=== PATIENT | female | born 1945 | race Caucasian/White ===

== ENCOUNTER 2018-03-27 12:25 | Emergency (ER) | payer MEDICARE, OTHER ==
--- NOTE | 2018-03-27 13:22 | ED Physician Documentation ---
PD HPI TRUNK INJURY - Stated complaint Stated Complaint: GLF/RIB PX - Chief complaint Chief Complaint: General - History obtained from History obtained from: Patient - History of Present Illness Location: Right chest Type of injury: Fall Timing - onset: Today Timing - duration: Minutes Timing - details: Abrupt onset, Still present Quality: Pain, Sharp Improved by: Rest, Immobilization Worsened by: Moving, Palpating Associated symtptoms: No: Weakness, Numbness, Syncope Contributing factors: No: Anticoagulated Where injury occured: Home Similar symptoms before: Has not had sx before Recently seen: Not recently seen - Additional information Additional information: 72-year-old female was working out in the garden today when she tripped on a branch and fell onto a gravel pathway. She fell directly onto the right side of her chest and she has specific point tenderness to the right chest. Review of Systems Constitutional: denies: Fever Eyes: denies: Decreased vision Ears: denies: Ear pain Nose: denies: Congestion Throat: denies: Sore throat Cardiac: reports: Chest pain / pressure. denies: Palpitations Respiratory: denies: Dyspnea, Cough GI: denies: Abdominal Pain, Nausea, Vomiting : denies: Dysuria PD PAST MEDICAL HISTORY - Past Medical History Past Medical History: Yes Cardiovascular: Hypertension, High cholesterol Neuro: Seizure disorder - Present Medications Home Medications: Ambulatory Orders Medication Instructions Recorded Confirmed HYDROcod/ACETAM 5/325 [[place] 5/325] 1 - 2 ea PO Q6H PRN #15 tablet 03/27/18 Lamotrigine [Lamictal (Blue)] 25 mg PO 03/27/18 Losartan [Cozaar] 50 mg PO DAILY 03/27/18 03/27/18 Lovastatin 03/27/18 - Allergies Allergies/Adverse Reactions: Allergies Allergy/AdvReac Type Severity Reaction Status Date / Time No Known Drug Allergies Allergy Verified 03/27/18 12:31 - Social History Does the pt smoke?: No Smoking Status: Never smoker PD ED PE NORMAL - Vitals Vital signs reviewed: Yes (normal and misrepresented on the resp) - General General: Alert and oriented X 3, No acute distress, Well developed/nourished - HEENT HEENT: Atraumatic, PERRL, EOMI - Neck Neck: Supple, no meningeal sign - Cardiac Cardiac: RRR, No murmur - Respiratory Respiratory: No respiratory distress, Clear bilaterally, Other (She is clutching the right side of the chest with her right arm. ) - Abdomen Abdomen: Soft, Non tender, Other (specifically no tenderness under the rib cage. ) - Back Back: No CVA TTP, No spinal TTP - Derm Derm: Normal color, Warm and dry, No rash - Extremities Extremities: No deformity, No edema - Neuro Neuro: Alert and oriented X 3, No motor deficit, No sensory deficit, Normal speech Eye Opening: Spontaneous Motor: Obeys Commands Verbal: Oriented GCS Score: 15 - Psych Psych: Normal mood, Normal affect Results - Vitals Vitals: Vital Signs - 24 hr 03/27/18 12:29 Temperature 36.7 C Heart Rate 72 Respiratory 1 L Rate Blood Pressure 127/72 O2 Saturation 100 Oxygen O2 Source Room air - Rads (name of study) ribs with PA chest Radiology: Prelim report reviewed (Impression: Negative chest and rib radiography.), Discussed with rads (The radiologist did not agree with my interpretation. ), EMP read indepedently (On my read there are nondisplaced fractures of the sixth and seventh rib.), See rad report PD MEDICAL DECISION MAKING - ED course Complexity details: reviewed results, re-evaluated patient, considered differential, d/w patient, d/w family ED course: 72-year-old female that fell onto fall onto the right side of her chest has cracked to ribs. We will provide some pain medication I discussed with her the natural history of rib fracture and their healing time and reasons to revisit the emergency department. I have discussed the importance of daily deep breathing. - Sepsis Event Vital Signs: Vital Signs - 24 hr 03/27/18 12:29 Temperature 36.7 C Heart Rate 72 Respiratory 1 L Rate Blood Pressure 127/72 O2 Saturation 100 Oxygen O2 Source Room air Departure - Departure Disposition: 01 Home, Self Care Clinical Impression: Rib fracture Qualifiers: Encounter type: initial encounter Rib fracture type: single rib Fracture type: closed Laterality: right Qualified Code(s): S22.31XA - Fracture of one rib, right side, initial encounter for closed fracture Condition: Stable Instructions: ED Contusion Vs Minor Fx Rib Follow-Up: Bozena Pickett PA [Primary Care Provider] - Prescriptions: HYDROcod/ACETAM 5/325 [[place] 5/325] 1 - 2 ea PO Q6H PRN #15 tablet PRN Reason: Pain
--- NOTE | 2018-03-27 13:27 | XRAY Report ---
EXAM: RIGHT RIB RADIOGRAPHY EXAM DATE: 03/27/2018 01:05 PM. CLINICAL HISTORY: Right rib injury. COMPARISON: None. TECHNIQUE: 1 view of the chest and 2 views of the ribs. FINDINGS: Bones: Normal. No fracture or bone lesion. Lungs: No focal opacities. No pneumothorax. No pleural effusions. Mediastinum: Heart and mediastinal contours are unremarkable. Other: There is a small hiatal hernia. IMPRESSION: Negative chest and rib radiography. [facility] Referring Provider Line: [phone] SITE ID: [id number]
[2018-03-27 13:54] VITALS: BP 115/79
== END 2018-03-27 13:52 | disposition home or self-care (01) ==
LOC: ED 12:25
DX: S22.31XA Fracture of one rib, right side, initial encounter for closed fracture (principal); W01.0XXA Fall on same level from slipping, tripping and stumbling without subsequent striking against object, initial encounter; Y93.H2 Activity, gardening and landscaping; Y92.007 Garden or yard of unspecified non-institutional (private) residence as the place of occurrence of the external cause; I10 Essential (primary) hypertension; E78.00 Pure hypercholesterolemia, unspecified
CPT/HCPCS: 99283

== ENCOUNTER 2018-09-03 13:25 | Emergency (ER) | payer MEDICARE, OTHER ==
[2018-09-03 13:41] VITALS: BP 145/67
--- NOTE | 2018-09-03 13:44 | ED Physician Documentation ---
PD HPI LOWER EXT INJURY - Stated complaint Stated Complaint: R ANKLE INJ - Chief complaint Chief Complaint: Ext Problem - History obtained from History obtained from: Patient - History of Present Illness PD HPI LOW EXT INJURY LOCATION: Right (She rolled her right ankle 6 days ago and has persistent swelling and pain that is not getting any better. She is able to walk and bear weight. She declines pain medication on initial evaluation. No other injuries.) Review of Systems Constitutional: reports: Reviewed and negative Cardiac: reports: Reviewed and negative Respiratory: reports: Reviewed and negative PD PAST MEDICAL HISTORY - Past Medical History Cardiovascular: Hypertension, High cholesterol Neuro: Seizure disorder - Present Medications Home Medications: Ambulatory Orders Medication Instructions Recorded Confirmed Lamotrigine [Lamictal (Blue)] 25 mg PO 03/27/18 Losartan [Cozaar] 50 mg PO DAILY 03/27/18 03/27/18 RX: HYDROcod/ACETAM 5/325 [[place] 1 - 2 ea PO Q6H PRN #15 tablet 03/27/18 5/325] RX: Lovastatin 1 tab PO DAILY 03/27/18 Cholecalciferol (Vitamin D3) 1 tab PO DAILY 09/03/18 09/03/18 [Vitamin D3] RX: Aspirin [Aspirin EC] 1 tab PO DAILY 09/03/18 09/03/18 - Allergies Allergies/Adverse Reactions: Allergies Allergy/AdvReac Type Severity Reaction Status Date / Time No Known Drug Allergies Allergy Verified 09/03/18 13:50 - Social History Does the pt smoke?: No Smoking Status: Never smoker PD ED PE NORMAL - Vitals Vital signs reviewed: Yes - General General: Alert and oriented X 3, No acute distress - Extremities Extremities: Other (Tender to both malleoli of the right ankle, lateral more than medial. No proximal fibular or foot tenderness.) - Neuro Neuro: Alert and oriented X 3, Normal speech Results - Vitals Vitals: Vital Signs - 24 hr 09/03/18 13:39 Temperature 37.0 C Heart Rate 67 Respiratory 16 Rate Blood Pressure 145/67 H O2 Saturation 99 Oxygen O2 Source Room air - Rads (name of study) R ankle 3v Radiology: EMP read contemporaneously (Minimally displaced tip fracture of the distal fibula) PD MEDICAL DECISION MAKING - ED course ED course: 73-year-old woman with a 6-day-old right ankle injury. X-rays demonstrate a little distal fibular chip fracture. She has been up and around on it for 6 days and I think she can continue to be ambulatory given the distal nature of this fracture. She is placed in a boot. Departure - Departure Disposition: 01 Home, Self Care Clinical Impression: Closed fracture of right distal fibula Condition: Good Record reviewed to determine appropriate education?: Yes Instructions: ED Fx Lower Ext, ED Boot Aircast Walker Follow-Up: [facility] [Provider Group] - Within 1 week Comments: As discussed, given that is just a little chip fracture I think you can continue to walk and bear weight on it. Keep the boot on when up and around though. Follow-up with the orthopedic surgeons office within the week, call tomorrow for an appointment. Tylenol as needed for pain. Your blood pressure was elevated today on check into the emergency department. This does not mean that you have hypertension, it is a common phenomenon to come to the emergency department and have elevated blood pressure. I recommend that you see your primary care physician within the week to have it rechecked when you are feeling better.
--- NOTE | 2018-09-03 14:37 | XRAY Report ---
Reason: ankle injury Procedure Date: 09/03/2018 Accession Number: [id number] / [id number] Procedure: XR - Ankle 3 View RT CPT Code: FULL RESULT: EXAM: RIGHT ANKLE RADIOGRAPHY EXAM DATE: 09/03/2018 01:52 PM. CLINICAL HISTORY: Twisting injury 4 days ago. Pain and swelling. COMPARISON: None. TECHNIQUE: 3 views. FINDINGS: Bones: Transverse fracture through the distal tip of the fibula with 3 mm diastasis. No other fracture. Joints: No effusion. No subluxations. The ankle mortise is normally aligned. Soft Tissues: Diffuse soft tissue swelling, most pronounced laterally. IMPRESSION: Acute fracture of the distal tip of the fibula with minimal displacement. [facility]
== END 2018-09-03 14:18 | disposition home or self-care (01) ==
LOC: ED 13:25
DX: S82.831A Other fracture of upper and lower end of right fibula, initial encounter for closed fracture (principal); X50.1XXA Overexertion from prolonged static or awkward postures, initial encounter; Y93.02 Activity, running; I10 Essential (primary) hypertension; Z79.82 Long term (current) use of aspirin
CPT/HCPCS: 99283

== ENCOUNTER 2022-11-24 07:57 | Outpatient (CLI) | payer MEDICARE, OTHER ==
--- NOTE | 2022-11-24 08:31 | XRAY Report ---
PROCEDURE: Shoulder 3 View RT INDICATIONS: CONTUSION OF RIGHT UPPPER ARM TECHNIQUE: 3 views of the shoulder were acquired. COMPARISON: None. FINDINGS: Bones: Markedly comminuted fracture of the right humeral head and neck with pseudosubluxation. No crescencio picious bony lesions. Visualized ribs appear intact. Soft tissues: No suspicious soft tissue calcifications. IMPRESSION: Markedly comminuted fracture of the right humeral head and neck with pseudosubluxation s econdary to shoulder joint effusion. Reviewed by: Redd Benoit MD on 11/24/2022 8:29 AM PST Approved by: Redd Benoit MD on 11/24/2022 8:29 AM PST Station ID: [id number]
--- NOTE | 2022-11-24 08:31 | XRAY Report ---
PROCEDURE: Humerus RT INDICATIONS: CONTUSION OF RIGHT UPPPER ARM TECHNIQUE: 2 views of the humerus were acquired. COMPARISON: Right shoulder from the same date FINDINGS: Bones: Markedly comminuted fracture of the humeral head and neck. No distal fractures. No suspicious bony lesions. Soft tissues: No suspicious soft tissue calcifications. IMPRESSION: Markedly comminuted fracture of the humeral head and neck. Reviewed by: Redd Benoit MD on 11/24/2022 8:30 AM PST Approved by: Redd Benoit MD on 11/24/2022 8:30 AM PST Station ID: [id number]
== END 2022-11-24 07:58 | disposition home or self-care (01) ==
LOC: DI 07:57
PROVIDERS: ATTEND Physician Assistant Medical
DX: S42.291A Other displaced fracture of upper end of right humerus, initial encounter for closed fracture (principal); M25.411 Effusion, right shoulder

== ENCOUNTER 2022-11-24 18:21 | Outpatient (CLI) | payer MEDICARE, OTHER ==
--- NOTE | 2022-11-25 08:46 | CT Report ---
PROCEDURE: UPPER EXTREMITY WO - RT INDICATIONS: 4 PART FX OF RIGHT HUMERUS TECHNIQUE: Noncontrast 2 mm axial sections were acquired through the elbow joint, with coronal and sagittal refo rmats. For radiation dose reduction, the following was used: automated exposure control, adjustment of mA and/or kV according to patient size. COMPARISON: Plain films dated 11/24/2022 FINDINGS: Image quality: Excellent. Bones: There is a moderately displaced comminuted fracture of the humeral head and neck, with roughl y 23 mm of impaction anteriorly. Periarticular osteophyte formation at the acromioclavicular joint. M ultiple healed right anterior rib fractures. Soft tissues: Scarring within the right anterior lung base. IMPRESSION: 1. Proximal right humeral fracture. 2. Acromial clavicular joint osteoarthritis. Reviewed by: Prema Núñez MD on 11/25/2022 8:45 AM PST Approved by: Prema Núñez MD on 11/25/2022 8:45 AM PST Station ID: [id number]
== END 2022-11-24 18:22 | disposition home or self-care (01) ==
LOC: DI 18:21
PROVIDERS: ATTEND Physician Assistant
DX: S42.241A 4-part fracture of surgical neck of right humerus, initial encounter for closed fracture (principal); M19.011 Primary osteoarthritis, right shoulder; M25.411 Effusion, right shoulder

== ENCOUNTER 2023-05-13 09:13 | Outpatient (CLI) | payer MEDICARE, OTHER ==
--- NOTE | 2023-05-16 11:59 | Mammography Report ---
BILATERAL DIGITAL SCREENING MAMMOGRAM 3D/2D: 05/13/2023 CLINICAL: Routine screening. Comparison is made to exam dated: 09/16/2020 mammogram - [facility]. There are scattered areas of fibroglandular density in both breasts (category b / 25%-50% glandular t issue). No significant masses, calcifications, or other findings are seen in either breast. There has been no significant interval change. IMPRESSION: NEGATIVE There is no mammographic evidence of malignancy. A 1 year screening mammogram is recommended. Based on the Tyrer Cuzick model (a risk assessment model) the patients lifetime risk is 2.9% and her 10 year risk is 0.0%. According to the ACR, ACS, and NCCN guidelines, an annual breast MRI exam kapil g with mammogram is recommended if the patients lifetime risk is 20% or greater. This exam was interpreted at Station ID: [id number]. NOTE: For mammograms, a report in lay terms will be sent to the patient. Approximately 15% of breast malignancies will not be visualized mammographically. In the management of a palpable breast mass, a negative mammogram must not discourage biopsy of a clinically suspicious lesion. Electronically Signed By: Yosef wilkinson/lily:05/13/2023 12:33:14 letter sent: No_Letter ACR BI-RADS Category 1: Negative 3341F PARENCHYMAL PATTERN: (A) - The breast(s) demonstrate(s) scattered fibroglandular densities. BI-RADS CATEGORY: (1) - 1 Mammogram [id number] 1 year screening LATERALITY: (B)
== END 2023-05-13 09:14 | disposition home or self-care (01) ==
LOC: DI 09:13
PROVIDERS: ATTEND Physician Assistant
DX: Z12.31 Encounter for screening mammogram for malignant neoplasm of breast (principal)

== ENCOUNTER 2023-05-13 09:14 | Outpatient (CLI) | payer MEDICARE, OTHER ==
--- NOTE | 2023-05-13 10:38 | DEXA Report ---
PROCEDURE: Dexa Spine and/or Hip INDICATIONS: HIST FRAGILLTY FX TECHNIQUE: Dual energy x-ray absorptiometry (DXA) was performed on a [employer] System. Regions measur ed are the AP Spine, femoral neck, and if needed forearm. COMPARISON: None FINDINGS: Lumbar Spine: Bone Mineral Density 1.034 g/cm/cm,T score -1.2. Left Femoral Neck: Bone Mineral Density 0.666 g/cm/cm, T score -2.7. Left Hip: Bone Mineral Density 0.737 g/cm/cm,T score -2.2. (T score greater or equal to -1.0: NORMAL) (T score from -1.1 to -2.4: OSTEOPENIA) (T score less than or equal to -2.5 to: OSTEOPOROSIS) Impression: By WHO criteria, this patient has osteoporosis. Patients with diagnosis of osteoporosis or osteopenia should have regular bone mineral density assess ment. For those eligible for Medicare, routine testing is allowed once every 2 years. Testing frequ ency can be increased for patients who have rapidly progressing disease or for those who are receivin g medical therapy to restore bone mass. Reviewed by: Satya Tesfaye MD on 05/13/2023 10:37 AM PDT Approved by: Satya Tesfaye MD on 05/13/2023 10:37 AM PDT Station ID: [id number]
== END 2023-05-13 09:15 | disposition home or self-care (01) ==
LOC: DI 09:14
PROVIDERS: ATTEND Physician Assistant
DX: Z87.310 Personal history of (healed) osteoporosis fracture (principal); M81.0 Age-related osteoporosis without current pathological fracture

== ENCOUNTER 2023-09-27 19:28 | Emergency (ER) | payer MEDICARE, OTHER ==
[2023-09-27 19:40] VITALS: BP 152/72; O2SAT 98
--- NOTE | 2023-09-27 19:52 | ED Physician Documentation ---
PD HPI OPHTHO - Stated complaint Stated Complaint: LT EYE PX - Chief complaint Chief Complaint: Heent - History obtained from History obtained from: Patient, Family - History of Present Illness Location: Left Associated symptoms: Redness, Tearing, FB sensation Contributing factors: No: Exposed to conjunctivitis, Recent URI - Additional information Additional information: Patient is a 78-year-old female complains of left eye pain. She states that she started to have a irritated sensation to the left eye and then removed her contact. She states that the pain has gradually worsened. Worse with opening her eyes. Better with closing her eyes. No drainage. No fevers. No chills. She does not sleep in her contacts. No trauma. 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 - Present Medications Home Medications: Ambulatory Orders Medication Instructions Recorded Confirmed HYDROcod/ACETAM 5/325 [[place] 5/325] 1 - 2 ea PO Q6H PRN #15 tablet 03/27/18 Lamotrigine [Lamictal (Blue)] 25 mg PO 03/27/18 Losartan [Cozaar] 50 mg PO DAILY 03/27/18 03/27/18 Lovastatin 1 tab PO DAILY 03/27/18 Aspirin [Aspirin EC] 1 tab PO DAILY 09/03/18 09/03/18 Cholecalciferol (Vitamin D3) 1 tab PO DAILY 09/03/18 09/03/18 [Vitamin D3] Ofloxacin 0.3% Ophth Drops 2 drops LEFTEYE Q4H 7 Days #5 ml 09/27/23 [Ocuflox 0.3% Ophth Drops] - Allergies Allergies/Adverse Reactions: Allergies Allergy/AdvReac Type Severity Reaction Status Date / Time No Known Drug Allergies Allergy Verified 09/27/23 19:32 - Social History Does the pt smoke?: No Smoking Status: Never smoker Does the pt drink ETOH?: Yes Does the pt have substance abuse?: No - Immunizations Immunizations are current?: Yes PD ED PE NORMAL - Vitals Vital signs reviewed: Yes - General General: Alert and oriented X 3, No acute distress - HEENT HEENT: Moist mucous membranes, Other (R eye normal. L eye Mild conjunctival injection. No foreign bodies under the eyelids. Fluorescein uptake in the mid cornea consistent with abrasion.) - Derm Derm: Warm and dry - Neuro Neuro: Alert and oriented X 3 - Psych Psych: Normal mood, Normal affect Results - Vitals Vitals: Vital Signs - 24 hr 09/27/23 09/27/23 19:30 19:59 Temperature 36.8 C Heart Rate 72 75 Respiratory 16 16 Rate Blood Pressure 152/72 H O2 Saturation 98 98 Oxygen O2 Source Room air PD Medical Decision Making - ED course Complexity details: considered differential, d/w patient, d/w family ED course: Patient with a left eye corneal abrasion. No foreign body. Will place on ofloxacin ophthalmic. Will have her follow-up with ophthalmology for further care. No contacts until she is done with the antibiotics. Patient counseled regarding signs and symptoms for which I believe and urgent re-evaluation would be necessary. Patient with good understanding of and agreement to plan and is comfortable going home at this time This document was made in part using voice recognition software. While efforts are made to proofread this document, sound alike and grammatical errors may occur. Departure - Departure Disposition: 01 Home, Self Care Clinical Impression: Corneal abrasion Qualifiers: Encounter type: initial encounter Laterality: left Qualified Code(s): S05.02XA - Injury of conjunctiva and corneal abrasion without foreign body, left eye, initial encounter Condition: Good Instructions: ED Eye Injury Corneal Abrasion Follow-Up: your,doctor in 1 week [Other] Prescriptions: Ofloxacin 0.3% Ophth Drops [Ocuflox 0.3% Ophth Drops] 2 drops LEFTEYE Q4H 7 Days #5 ml Comments: Your prescription was sent to [facility] in [place]. Please use the antibiotic drops as prescribed. Do not wear your contacts until you are done with the antibiotic drops. You can use artificial tears at home, cool compresses can help with discomfort as well. You have a scratch on your cornea that should heal on its own. Forms: PCP List Discharge Date/Time: 09/27/23 19:59
== END 2023-09-27 19:59 | disposition home or self-care (01) ==
LOC: ED 19:28
DX: S05.02XA Injury of conjunctiva and corneal abrasion without foreign body, left eye, initial encounter (principal); X58.XXXA Exposure to other specified factors, initial encounter; I10 Essential (primary) hypertension
CPT/HCPCS: 99282; 99283

== ENCOUNTER 2024-03-20 12:38 | Outpatient (CLI) | payer MEDICARE, BC | END 2024-03-20 23:59 | disposition critical access hospital (66) | LOC: EMS 12:38 | DX: R42 Dizziness and giddiness (principal) | CPT/HCPCS: A0425; A0429 ==

== ENCOUNTER 2024-03-20 13:03 | Emergency (ER) | payer MEDICARE, BC ==
[2024-03-20 13:41] LABS: BASOPHILS % (AUTO) 0.3 %; EOSINOPHILS # (AUTO) 0.2 10^3/uL (0.0-0.7); EOSINOPHILS % (AUTO) 2.1 %; HCT - HEMATOCRIT 32.9 % (37.0-47.0); HGB - HEMOGLOBIN 10.1 g/dL (12.0-16.0); LYMPHOCYTES # (AUTO) 1.4 10^3/uL (1.5-3.5); LYMPHOCYTES % (AUTO) 18.9 %; MEAN CORPUSCULAR HEMOGLOBIN 29.8 pg (27.0-31.0); MEAN CORPUSCULAR HGB CONC 30.7 g/dL (32.0-36.0); MEAN CORPUSCULAR VOLUME 97.1 fL (81.0-99.0); MEAN PLATELET VOLUME 9.9 fL (7.9-10.8); MONOCYTES # (AUTO) 0.6 10^3/uL (0.0-1.0); MONOCYTES % (AUTO) 8.5 %; NEUTROPHILS # (AUTO) 5.1 10^3/uL (1.5-6.6); NEUTROPHILS % (AUTO) 69.9 %; PLT - PLATELET COUNT 324 10^3/uL (130-450); RED BLOOD COUNT 3.39 10^6/uL (4.20-5.40); WHITE BLOOD COUNT 7.3 x10^3/uL (4.8-10.8)
--- NOTE | 2024-03-20 13:57 | ED Physician Documentation ---
History of Present Illness - Stated complaint Stated Complaint: VERTIGO - Chief complaint Chief Complaint: Neuro - Additonal information Additional information: 78-year-old female with history of hypertension, hypercholesterolemia, seizure disorder presents emergency department for dizziness. Patient is here with her daughter her daughter says that she is normally quite clumsy but over the last week patient has been having to hold onto things more than normal and has been feeling very dizzy. 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 - Present Medications Home Medications: Ambulatory Orders Medication Instructions Recorded Confirmed Lamotrigine [Lamictal (Blue)] 250 mg PO BID 03/27/18 03/20/24 Losartan [Cozaar] 25 mg PO DAILY 03/27/18 03/20/24 Lovastatin 1 tab PO DAILY 03/27/18 03/20/24 Meclizine HCl 25 mg PO TID PRN #20 tab 03/20/24 Ondansetron Odt [Zofran Odt] 4 mg TL Q6H PRN #10 tablet 03/20/24 PARoxetine HCL [Paxil] 1 tab PO DAILY 03/20/24 03/20/24 - Allergies Allergies/Adverse Reactions: Allergies Allergy/AdvReac Type Severity Reaction Status Date / Time No Known Drug Allergies Allergy Verified 03/20/24 13:17 - Social History Does the pt smoke?: No Smoking Status: Never smoker Does the pt drink ETOH?: Yes Does the pt have substance abuse?: No - Immunizations Immunizations are current?: Yes PD ED PE NORMAL - Vitals Vital signs reviewed: Yes - General General: Alert and oriented X 3, No acute distress, Well developed/nourished - HEENT HEENT: Atraumatic, PERRL, EOMI, Ears normal, Moist mucous membranes - Cardiac Cardiac: RRR - Respiratory Respiratory: No respiratory distress, Clear bilaterally - Abdomen Abdomen: Normal bowel sounds, Soft, Non tender - Female Female : Deferred - Back Back: No CVA TTP - Derm Derm: Normal color, Warm and dry, No rash - Extremities Extremities: No edema, No calf tenderness / cord - Neuro Neuro: Alert and oriented X 3, assurance analyst 2-12 intact, No motor deficit, No sensory deficit, Normal speech Eye Opening: Spontaneous Motor: Obeys Commands Verbal: Oriented GCS Score: 15 - Psych Psych: Normal mood, Normal affect Results - Vitals Vitals: Vital Signs - 24 hr 03/20/24 03/20/24 03/20/24 13:13 13:36 13:43 Temperature 36.4 C L Heart Rate 76 69 Heart Rate [ 74 Sitting] Heart Rate [ 78 Standing] Heart Rate [ 76 Supine] Respiratory 17 16 Rate Blood Pressure 155/77 H 155/77 H Blood Pressure 163/79 H [Sitting] Blood Pressure 154/85 H [Standing] Blood Pressure 155/77 H [Supine] O2 Saturation 97 96 03/20/24 03/20/24 17:19 19:10 Temperature Heart Rate 72 82 Heart Rate [ Sitting] Heart Rate [ Standing] Heart Rate [ Supine] Respiratory 16 18 Rate Blood Pressure 139/71 H 143/78 H Blood Pressure [Sitting] Blood Pressure [Standing] Blood Pressure [Supine] O2 Saturation 96 97 Oxygen O2 Source Room air - Labs Labs: Laboratory Tests 03/20/24 03/20/24 13:35 13:35 WBC 7.3 RBC 3.39 L Hgb 10.1 L Hct 32.9 L MCV 97.1 MCH 29.8 MCHC 30.7 L RDW 14.0 Plt Count 324 MPV 9.9 Neut # (Auto) 5.1 Lymph # (Auto) 1.4 L [place] # (Auto) 0.6 Eos # (Auto) 0.2 Baso # (Auto) 0.0 Absolute Nucleated RBC 0.00 Nucleated RBC % 0.0 Sodium 138 Potassium 4.4 Chloride 105 Carbon Dioxide 26 Anion Gap 7.0 BUN 21 H Creatinine 1.2 Estimated GFR (MDRD) 44 L Glucose 91 Calcium 9.7 Total Bilirubin 0.3 AST 12 ALT 8 L Alkaline Phosphatase 96 Troponin I High Sens 5.3 Total Protein 6.8 Albumin 4.0 Globulin 2.8 Albumin/Globulin Ratio 1.4 Lipase 16 - Rads (name of study) . Brain MRI without Relevant Findings:: Final report received, EMP independent interpretation of test, Other (No acute intracranial abnormalities or findings) PD Medical Decision Making - ED course ED course: 78-year-old female presents emergency department for what sounds like vertigo. Differentials also include possible brain lesion, CVA, or neoplasm. Labs are complete for further evaluation of patient's dizziness she does have very mild anemia hemoglobin 10.1 as well as a slightly suppressed GFR of 44 and a slightly elevated BUN of 21. Other than that no other electrolyte abnormalities or findings. Because patient said that she has been struggling with this for some time and I was unable to elicit any of her vertigo here in the ER did do a brain MRI without given that her symptoms have been going on now for over a week and a half I did not think a CT scan was necessarily warranted. Patient was quite anxious and asked for anxiolytic she received 2 separate doses of 1 mg IV Ativan to help with her anxiety as patient is very claustrophobic. She is able to complete the brain MRI without any complications and it did not reveal any acute intracranial abnormalities or findings. Patient was started on meclizine and Zofran here in the ER she was given a referral to [place] Salvatore [place]as[place] of [place] balance and her vertigo symptoms. She is told to follow-up with her primary care provider. ER return precautions given. Prescription of meclizine and Zofran sent to her preferred pharmacy, all questions answered patient is leaving with her daughter and safe for discharge at this time. Departure - Departure Disposition: 01 Home, Self Care Clinical Impression: Vertigo Instructions: ED Vertigo Unspecified Prescriptions: Meclizine HCl 25 mg PO TID PRN #20 tab PRN Reason: Dizziness Ondansetron Odt [Zofran Odt] 4 mg TL Q6H PRN #10 tablet PRN Reason: Nausea / Vomiting Comments: Thank you for trusting us with your care. We have completed labs and very thorough evaluation including a brain MRI for further investigation as to what is causing your dizziness and we are not seeing any emergent findings at this point in time. I strongly encourage you to follow-up with your primary care provider and let them know about today's ER visit and I would also strongly encourage you to follow-up with Salvatore olmos and balance physical therapist. Their phone number is [phone]. I have sent a prescription of meclizine you can take 25 mg up to 3 times a day as needed for any vertigo symptoms as well as ondansetron also known as Zofran to help with any nausea you can take this every 6 hours make sure that you dissolve it under your tongue and do not swallow it. Please come back to the emergency department for any further evaluation if your symptoms get worse or any other concerning emergent symptoms. Wishing a speedy recovery. Forms: PCP List Discharge Date/Time: 03/20/24 19:16
[2024-03-20 13:58] LABS: ALBUMIN/GLOBULIN RATIO 1.4 (1.0-2.2); BILIRUBIN,TOTAL 0.3 mg/dL (0.2-1.0); CALCIUM 9.7 mg/dL (8.5-10.3); CREATININE 1.2 mg/dL (0.6-1.3); POTASSIUM 4.4 mmol/L (3.5-4.5); TOTAL PROTEIN 6.8 g/dL (6.4-8.9)
[2024-03-20 14:02] LABS: TROPONIN I HIGH SENSITIVITY 5.3 ng/L (2.3-14.8)
[2024-03-20] MEDS: LORazepam 2 MG/ML VIAL IVP STA ×3 (14:50→17:21)
[2024-03-20] MEDS: LORazepam 1 MG TABLET PO STA (14:56)
--- NOTE | 2024-03-20 18:23 | MRI Report ---
PROCEDURE: Brain WO INDICATIONS: vertigo TECHNIQUE: Noncontrast axial T1 spin echo, axial T2 fast spin echo, sagittal and axial FLAIR, coronal T2 fast sp in echo, axial gradient echo, axial diffusion and ADC through the brain. COMPARISON: None. FINDINGS: Image quality: Motion artifact is noted. CSF Spaces: Basal cisterns are patent. No extra-axial fluid collections. Ventricles are normal in size and shape. Brain: No intracranial masses or hemorrhage. Salazar/white matter interface is normal. Brainstem appe ars normal. Diffusion-weighted images demonstrate no acute ischemic insult. No chronic ischemic ins ults. Normal intravascular flow voids are present. In this patient with this given history, scrutiny is given to the cerebellopontine angle cisterns and to the internal auditory canals. To the limits of this standard protocol study, no masses can be see n within these regions. Skull and face: Focal scalp thickening can be seen involving the left frontal region, as on series 7 image 17. Calvarium has normal marrow signal. Orbits appear normal. Sinuses: Sinuses and mastoids are clear. IMPRESSION: The limits of this study, no cause of vertigo can be seen. Reviewed by: Pieter Hernandes MD on 03/20/2024 5:21 PM YARELI Approved by: Pieter Hernandes MD on 03/20/2024 5:21 PM YARELI Station ID: [id number]
[2024-03-20] MEDS: MECLIZINE 12.5 MG TABLET PO STA (18:59)
[2024-03-20] MEDS: ONDANSETRON 4 MG/2 ML VIAL IVP STA (18:59)
[2024-03-20 19:19] VITALS: BP 143/78; O2SAT 97
== END 2024-03-20 19:16 | disposition home or self-care (01) ==
LOC: EDUNIT# → ED 13:03
DX: R42 Dizziness and giddiness (principal); D64.9 Anemia, unspecified; R79.89 Other specified abnormal findings of blood chemistry; F41.9 Anxiety disorder, unspecified; F40.240 Claustrophobia; I10 Essential (primary) hypertension
CPT/HCPCS: 36415; 70551; 80053; 83690; 84484; 85025; 93005; 96374; 96375; 96376; 99284; A9270; J2060

== ENCOUNTER 2024-03-21 18:33 | Emergency (ER) | payer MEDICARE, BC ==
[2024-03-21 20:06] LABS: BASOPHILS % (AUTO) 0.3 %; EOSINOPHILS # (AUTO) 0.1 10^3/uL (0.0-0.7); EOSINOPHILS % (AUTO) 1.8 %; HCT - HEMATOCRIT 35.8 % (37.0-47.0); HGB - HEMOGLOBIN 10.8 g/dL (12.0-16.0); LYMPHOCYTES # (AUTO) 1.3 10^3/uL (1.5-3.5); LYMPHOCYTES % (AUTO) 19.8 %; MEAN CORPUSCULAR HEMOGLOBIN 29.8 pg (27.0-31.0); MEAN CORPUSCULAR HGB CONC 30.2 g/dL (32.0-36.0); MEAN CORPUSCULAR VOLUME 98.9 fL (81.0-99.0); MEAN PLATELET VOLUME 10.2 fL (7.9-10.8); MONOCYTES # (AUTO) 0.7 10^3/uL (0.0-1.0); MONOCYTES % (AUTO) 10.3 %; NEUTROPHILS # (AUTO) 4.4 10^3/uL (1.5-6.6); NEUTROPHILS % (AUTO) 67.5 %; PLT - PLATELET COUNT 342 10^3/uL (130-450); RED BLOOD COUNT 3.62 10^6/uL (4.20-5.40); RED CELL DISTRIBUTION WIDTH 13.8 % (12.0-15.0); WHITE BLOOD COUNT 6.5 x10^3/uL (4.8-10.8)
[2024-03-21 20:16] LABS: BILIRUBIN,URINE NEGATIVE (NEGATIVE); GLUCOSE, URINE (UA) NEGATIVE (NEGATIVE); KETONES,URINE (UA) NEGATIVE (NEGATIVE); LEUKOCYTE ESTERASE, URINE SMALL (NEGATIVE); NITRITE,URINE NEGATIVE (NEGATIVE); OCCULT BLOOD,URINE NEGATIVE (NEGATIVE); PROTEIN,URINE NEGATIVE (NEGATIVE); UROBILINOGEN,URINE 0.2 (NORMAL) E.U./dL (NORMAL)
[2024-03-21 20:17] LABS: CLARITY,URINE CLEAR (CLEAR)
[2024-03-21 20:24] LABS: BACTERIA,URINE Rare /HPF (None Seen); RBC,URINE None Seen /HPF (0-5); SQUAMOUS EPITHELIAL CELL,UR RARE Squamous (<= Few)
[2024-03-21 20:33] LABS: ALBUMIN 4.2 g/dL (3.2-5.5); ALBUMIN/GLOBULIN RATIO 1.7 (1.0-2.2); BILIRUBIN,TOTAL 0.3 mg/dL (0.2-1.0); CREATININE 1.4 mg/dL (0.6-1.3); POTASSIUM 4.5 mmol/L (3.5-4.5); TOTAL PROTEIN 6.7 g/dL (6.4-8.9)
[2024-03-21 21:07] VITALS: O2SAT 99
[2024-03-21] MEDS ORDERED: cefTRIAXone 1 GM VIAL ONE (21:16)
--- NOTE | 2024-03-21 21:18 | ED Physician Documentation ---
History of Present Illness - Stated complaint Stated Complaint: DIZZY/SHAKY - Chief complaint Chief Complaint: Neuro - History obtained from History obtained from: Patient - Additonal information Additional information: 78yF presents to the ED for second ed visit in 2 days after c/o dizziness and "fuzziness" with negative workup yesterday. Today she additionally reports dysuria and increased frequency. Denies fever, back pain, abdominal pain. 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 - Present Medications Home Medications: Ambulatory Orders Medication Instructions Recorded Confirmed Lamotrigine [Lamictal (Blue)] 250 mg PO BID 03/27/18 03/20/24 Losartan [Cozaar] 25 mg PO DAILY 03/27/18 03/20/24 Lovastatin 1 tab PO DAILY 03/27/18 03/20/24 Meclizine HCl 25 mg PO TID PRN #20 tab 03/20/24 Ondansetron Odt [Zofran Odt] 4 mg TL Q6H PRN #10 tablet 03/20/24 PARoxetine HCL [Paxil] 1 tab PO DAILY 03/20/24 03/20/24 Cefpodoxime Proxetil [Vantin] 100 mg PO Q12H #14 tablet 03/21/24 Saccharomyces Boulardii [Florastor] 250 mg PO BIDWM #14 tab 03/21/24 - Allergies Allergies/Adverse Reactions: Allergies Allergy/AdvReac Type Severity Reaction Status Date / Time No Known Drug Allergies Allergy Verified 03/21/24 18:50 - Social History Does the pt smoke?: No Smoking Status: Never smoker Does the pt drink ETOH?: Yes Does the pt have substance abuse?: No - Immunizations Immunizations are current?: Yes PD ED PE NORMAL - Vitals Vital signs reviewed: Yes - General General: Alert and oriented X 3, No acute distress, Well developed/nourished - HEENT HEENT: Atraumatic, PERRL, EOMI - Neck Neck: Supple, no meningeal sign - Cardiac Cardiac: RRR - Respiratory Respiratory: No respiratory distress, Clear bilaterally - Abdomen Abdomen: Non tender, Non distended - Derm Derm: Normal color, Warm and dry - Neuro Neuro: Alert and oriented X 3 Eye Opening: Spontaneous Motor: Obeys Commands Verbal: Oriented GCS Score: 15 Results - Vitals Vitals: Vital Signs - 24 hr 03/21/24 03/21/24 03/21/24 18:43 20:55 21:12 Temperature 36.5 C Heart Rate 77 69 Heart Rate [ 82 Sitting] Heart Rate [ 72 Standing] Heart Rate [ 72 Supine] Respiratory 18 18 Rate Blood Pressure 110/62 125/86 H Blood Pressure 139/70 H [Sitting] Blood Pressure 127/77 [Standing] Blood Pressure 134/67 H [Supine] O2 Saturation 98 99 Oxygen O2 Source Room air - Labs Labs: Laboratory Tests 03/21/24 03/21/24 03/21/24 20:01 20:01 20:11 WBC 6.5 RBC 3.62 L Hgb 10.8 L Hct 35.8 L MCV 98.9 MCH 29.8 MCHC 30.2 L RDW 13.8 Plt Count 342 MPV 10.2 Neut # (Auto) 4.4 Lymph # (Auto) 1.3 L [place] # (Auto) 0.7 Eos # (Auto) 0.1 Baso # (Auto) 0.0 Absolute Nucleated RBC 0.00 Nucleated RBC % 0.0 Sodium 139 Potassium 4.5 Chloride 104 Carbon Dioxide 28 Anion Gap 7.0 BUN 22 H Creatinine 1.4 H Estimated GFR (MDRD) 36 L Glucose 101 Calcium 10.0 Total Bilirubin 0.3 AST 11 ALT 8 L Alkaline Phosphatase 89 Total Protein 6.7 Albumin 4.2 Globulin 2.5 Albumin/Globulin Ratio 1.7 Lipase 18 Urine Color YELLOW Urine Clarity CLEAR Urine pH 6.0 Ur Specific [place] 1.025 Urine Protein NEGATIVE Urine Glucose (UA) NEGATIVE Urine Ketones NEGATIVE Urine Occult Blood NEGATIVE Urine Nitrite NEGATIVE Urine Bilirubin NEGATIVE Urine Urobilinogen 0.2 (NORMAL) Ur Leukocyte Esterase SMALL H Urine RBC None Seen Urine WBC 11-25 H Ur Squamous Epith Cells RARE Squamous Urine Bacteria Rare Urine Culture Comments INDICATED PD Medical Decision Making - ED course ED course: 78-year-old woman presents with urinary tract infection and urinalysis with mild ANIBAL with creatinine 1.4, up from 1.2 yesterday. She has stable chronic anemia that she is already aware of. Advised to follow-up with her primary care provider in regards to this. Declines rectal exam at this time. Last hemoglobin in 2012 was 12.6. Return precautions discussed and antibiotics sent to pharmacy. First dose provided here. Departure - Departure Disposition: 01 Home, Self Care Clinical Impression: UTI (urinary tract infection) Condition: Stable Instructions: ED UTI Cystitis Female Prescriptions: Saccharomyces Boulardii [Florastor] 250 mg PO BIDWM #14 tab Cefpodoxime Proxetil [Vantin] 100 mg PO Q12H #14 tablet Comments: You were seen in the emergency department for urinary tract infection. Antibiotics were sent to [facility] in [place]. Please follow-up with your primary care provider about your anemia and to have your kidney function tests repeated in one to two weeks. Return to the emergency department if you have any new or worsening symptoms or other concerns.
[2024-03-21] MEDS: cefTRIAXone 1 GM in SODIUM CHLORIDE 0.9% MINIBAG 100 ML IV STA (21:54)
[2024-03-21] MEDS: CEFPODOXIME PROXETIL 100 MG TABLET PO STA ×2 (22:05→22:12)
[2024-03-21] MEDS: cefTRIAXone 2 GM VIAL IVP STA (22:11)
[2024-03-21 22:24] VITALS: BP 136/69
== END 2024-03-21 22:13 | disposition home or self-care (01) ==
LOC: ED 18:33
DX: N30.00 Acute cystitis without hematuria (principal); N17.9 Acute kidney failure, unspecified; D64.9 Anemia, unspecified; I10 Essential (primary) hypertension; G40.909 Epilepsy, unspecified, not intractable, without status epilepticus
CPT/HCPCS: 36415; 80053; 81001; 83690; 85025; 87086; 99283; A9270

== ENCOUNTER 2024-03-23 00:46 | Outpatient (CLI) | payer MEDICARE, BC ==
--- NOTE | 2024-03-25 11:49 | ED Physician Documentation ---
ED Addendum - Addendum Addendum: 03/25/24 11:49 Urine culture reviewed, probably would change her over to Cipro. I left a voicemail for her to call back at this time.
== END 2024-03-23 23:59 ==
LOC: EMS 00:46
DX: Z03.89 Encounter for observation for other suspected diseases and conditions ruled out (principal)

== ENCOUNTER 2024-03-26 12:39 | Outpatient (CLI) | payer MEDICARE, BC | END 2024-03-26 23:59 | disposition critical access hospital (66) | LOC: EMS 12:39 | DX: R41.0 Disorientation, unspecified (principal); R53.1 Weakness; R29.6 Repeated falls | CPT/HCPCS: A0425; A0429 ==

== ENCOUNTER 2024-03-26 13:02 | Emergency (ER) | payer MEDICARE, BC ==
[2024-03-26] MEDS: SODIUM CHLORIDE 0.9% 1,000 ML IV STA (14:17)
[2024-03-26 14:28] LABS: BASOPHILS % (AUTO) 0.3 %; EOSINOPHILS # (AUTO) 0.1 10^3/uL (0.0-0.7); EOSINOPHILS % (AUTO) 1.3 %; HCT - HEMATOCRIT 33.2 % (37.0-47.0); HGB - HEMOGLOBIN 10.1 g/dL (12.0-16.0); LYMPHOCYTES # (AUTO) 1.1 10^3/uL (1.5-3.5); MEAN CORPUSCULAR HEMOGLOBIN 29.7 pg (27.0-31.0); MEAN CORPUSCULAR HGB CONC 30.4 g/dL (32.0-36.0); MEAN CORPUSCULAR VOLUME 97.6 fL (81.0-99.0); MEAN PLATELET VOLUME 10.1 fL (7.9-10.8); MONOCYTES # (AUTO) 0.6 10^3/uL (0.0-1.0); MONOCYTES % (AUTO) 7.8 %; NEUTROPHILS # (AUTO) 5.3 10^3/uL (1.5-6.6); NEUTROPHILS % (AUTO) 75.2 %; PLT - PLATELET COUNT 298 10^3/uL (130-450); RED CELL DISTRIBUTION WIDTH 13.9 % (12.0-15.0); WHITE BLOOD COUNT 7.1 x10^3/uL (4.8-10.8)
[2024-03-26 14:42] LABS: ALBUMIN 4.1 g/dL (3.2-5.5); ALBUMIN/GLOBULIN RATIO 1.4 (1.0-2.2); BILIRUBIN,TOTAL 0.4 mg/dL (0.2-1.0); CREATININE 1.2 mg/dL (0.6-1.3); POTASSIUM 4.2 mmol/L (3.5-4.5); TOTAL PROTEIN 7.1 g/dL (6.4-8.9)
--- NOTE | 2024-03-26 17:14 | ED Physician Documentation ---
History of Present Illness - Stated complaint Stated Complaint: GEN WEAKNESS - Chief complaint Chief Complaint: General - History obtained from History obtained from: Patient, Family - Additonal information Additional information: The patient is brought to the emergency department by her daughter for chief complaint of being off balance and confused. The patient was diagnosed with a urinary tract infection about a week ago and at that time had been having some complaints of dizziness. The family also felt that she seemed a little bit confused. Patient normally lives on her own and takes care of herself but daughter lives nearby. She states she is never noted the patient to be as confused that she has been over the last week. She states that yesterday morning, the patient thought it had snowed that the patient states she was wearing her glasses and that is why she thought there was snow on the ground. Patient is also been getting up repeatedly despite the fact that she is not balancing well and keeps falling. Patient had very extensive workup last week including MRI and all was negative except for UTI. The patient was called yesterday to be notified that her prescription for antibiotics needed to be changed to Cipro, but daughter states that she does not think the patient got the message. The patient states she does not feel sick at all. She does not think she is confused though her daughter very much thinks she is. The patient does notice the feeling of spinning in her brain. She denies any injuries from the falls. Daughter states her main concern is she does not think they are doing a good enough job taking care of the patient at home. It has been her and her sister and [id number] and she is just worried she also is concerned that she does not know why the patient is having the symptoms. She states the patient has never had a Mini-Mental status exam or any other evaluation for the potential for dementia. She has never had need of a neurologist for anything. No other complaints at this time. 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 - Present Medications Home Medications: Ambulatory Orders Medication Instructions Recorded Confirmed Lamotrigine [Lamictal (Blue)] 250 mg PO BID 03/27/18 03/20/24 Losartan [Cozaar] 25 mg PO DAILY 03/27/18 03/20/24 Lovastatin 1 tab PO DAILY 03/27/18 03/20/24 Meclizine HCl 25 mg PO TID PRN #20 tab 03/20/24 Ondansetron Odt [Zofran Odt] 4 mg TL Q6H PRN #10 tablet 03/20/24 PARoxetine HCL [Paxil] 1 tab PO DAILY 03/20/24 03/20/24 Cefpodoxime Proxetil [Vantin] 100 mg PO Q12H #14 tablet 03/21/24 Saccharomyces Boulardii [Florastor] 250 mg PO BIDWM #14 tab 03/21/24 - Allergies Allergies/Adverse Reactions: Allergies Allergy/AdvReac Type Severity Reaction Status Date / Time No Known Drug Allergies Allergy Verified 03/26/24 13:08 - Social History Does the pt smoke?: No Smoking Status: Never smoker Does the pt drink ETOH?: Yes Does the pt have substance abuse?: No - Immunizations Immunizations are current?: Yes PD ED PE NORMAL - Vitals Vital signs reviewed: Yes - General General: No acute distress, Other (The patient is well-appearing and cordial, easily conversant, oriented x 3 at this point in time.) - HEENT HEENT: Atraumatic, EOMI, Moist mucous membranes - Neck Neck: Supple, no meningeal sign - Cardiac Cardiac: RRR, No murmur, Strong equal pulses - Respiratory Respiratory: No respiratory distress, Clear bilaterally - Abdomen Abdomen: Soft, Non tender, Non distended - Derm Derm: Normal color, Warm and dry, No rash - Extremities Extremities: No deformity - Neuro Neuro: vp [employer] 2-12 intact, No motor deficit, No sensory deficit, Normal speech, Other (Alert, answers questions appropriately.) - Psych Psych: Normal mood, Normal affect Results - Vitals Vitals: Vital Signs - 24 hr 03/26/24 03/26/24 03/26/24 13:05 15:07 17:00 Temperature 36.5 C Heart Rate 71 71 67 Respiratory 16 16 16 Rate Blood Pressure 145/75 H 144/65 H 135/69 H O2 Saturation 98 100 97 Oxygen O2 Source Room air - Labs Labs: Laboratory Tests 03/26/24 03/26/24 03/26/24 14:15 14:15 14:15 WBC 7.1 RBC 3.40 L Hgb 10.1 L Hct 33.2 L MCV 97.6 MCH 29.7 MCHC 30.4 L RDW 13.9 Plt Count 298 MPV 10.1 Neut # (Auto) 5.3 Lymph # (Auto) 1.1 L [place] # (Auto) 0.6 Eos # (Auto) 0.1 Baso # (Auto) 0.0 Absolute Nucleated RBC 0.00 Nucleated RBC % 0.0 Sodium 137 Potassium 4.2 Chloride 104 Carbon Dioxide 27 Anion Gap 6.0 BUN 23 H Creatinine 1.2 Estimated GFR (MDRD) 44 L Glucose 99 Calcium 10.0 Total Bilirubin 0.4 AST 11 ALT 8 L Alkaline Phosphatase 89 Total Protein 7.1 Albumin 4.1 Globulin 3.0 Albumin/Globulin Ratio 1.4 Lipase 10 L TSH 0.58 Urine Color Urine Clarity Urine pH Ur Specific [place] Urine Protein Urine Glucose (UA) Urine Ketones Urine Occult Blood Urine Nitrite Urine Bilirubin Urine Urobilinogen Ur Leukocyte Esterase Ur Microscopic Review Urine Culture Comments 03/26/24 17:30 WBC RBC Hgb Hct MCV MCH MCHC RDW Plt Count MPV Neut # (Auto) Lymph # (Auto) [place] # (Auto) Eos # (Auto) Baso # (Auto) Absolute Nucleated RBC Nucleated RBC % Sodium Potassium Chloride Carbon Dioxide Anion Gap BUN Creatinine Estimated GFR (MDRD) Glucose Calcium Total Bilirubin AST ALT Alkaline Phosphatase Total Protein Albumin Globulin Albumin/Globulin Ratio Lipase TSH Urine Color YELLOW Urine Clarity HAZY Urine pH 5.5 Ur Specific [place] 1.020 Urine Protein NEGATIVE Urine Glucose (UA) NEGATIVE Urine Ketones NEGATIVE Urine Occult Blood NEGATIVE Urine Nitrite NEGATIVE Urine Bilirubin NEGATIVE Urine Urobilinogen 0.2 (NORMAL) Ur Leukocyte Esterase SMALL H Ur Microscopic Review INDICATED Urine Culture Comments Not Reportable PD Medical Decision Making - ED course Complexity details: reviewed old records, reviewed results, re-evaluated patient, considered differential, d/w patient, d/w family ED course: The patient was worked up with laboratory studies today, which were unremarkable. I reviewed her results from last week as well. I consulted the neonatal social worker because although this patient may need follow-up with neurology as an outpatient, the primary and most pressing concern is family's ability to meet her needs at home. The patient's daughters were very appropriately concerned and had a good rapport with the patient. However, we did talk about the possible need for respite care. I have consulted social work to come and talk with the patient and at this point, the family is actually leaning [facility]. We will keep the patient in the emergency department overnight until social work can come back and arrange for her to go to [facility]. Plan is for likely [facility], as they did say they had beds today. Patient signed out to the oncoming emergency physician at change of shift, pending final disposition. Departure - Departure Forms: PCP List
[2024-03-26 17:57] LABS: BILIRUBIN,URINE NEGATIVE (NEGATIVE); GLUCOSE, URINE (UA) NEGATIVE (NEGATIVE); KETONES,URINE (UA) NEGATIVE (NEGATIVE); LEUKOCYTE ESTERASE, URINE SMALL (NEGATIVE); NITRITE,URINE NEGATIVE (NEGATIVE); OCCULT BLOOD,URINE NEGATIVE (NEGATIVE); PH,URINE 5.5 PH (5.0-7.5); PROTEIN,URINE NEGATIVE (NEGATIVE); UROBILINOGEN,URINE 0.2 (NORMAL) E.U./dL (NORMAL)
[2024-03-26 18:02] LABS: CLARITY,URINE HAZY (CLEAR)
[2024-03-26 18:06] LABS: BACTERIA,URINE Few /HPF (None Seen); RBC,URINE 0-5 /HPF (0-5); SQUAMOUS EPITHELIAL CELL,UR NONE SEEN (<= Few)
[2024-03-26] MEDS ORDERED: ACETAMINOPHEN 500 MG TABLET PO PRN (18:11)
[2024-03-26] MEDS: CIPROFLOXACIN 250 MG TABLET PO STA (18:15)
[2024-03-26] MEDS: ATORVASTATIN 40 MG TABLET PO STA (18:17)
[2024-03-26] MEDS: OLANZapine ODT 5 MG TABLET TL STA (20:37)
[2024-03-26] MEDS: lamoTRIgine 100 MG TABLET PO SCH (20:37)
[2024-03-27] MEDS: CIPROFLOXACIN 250 MG TABLET PO SCH (05:49)
[2024-03-27] MEDS: PANTOPRAZOLE 40 MG TABLET PO SCH (06:36)
[2024-03-27] MEDS: LOSARTAN 50 MG TABLET PO SCH (09:34)
[2024-03-27] MEDS: MULTIVITAMIN TABLET PO SCH (09:34)
--- NOTE | 2024-03-27 12:59 | ED Physician Documentation ---
ED Addendum - Addendum Addendum: 03/27/24 12:57 Social work was able to come up with placement to [facility] for the patient. She will be going to [facility]. She has a ride there this afternoon. They were unable to get the intermediate orders from her primary care. I will fill out the temporary intermediate transition orders in order to facilitate her disposition today. Disposition: [facility] Diagnoses: 1. General weakness 2. difficulty walking 3. confusion 03/27/24 12:59
[2024-03-27 14:35] VITALS: BP 139/75; O2SAT 96
== END 2024-03-27 13:55 ==
LOC: EDUNIT# → ED 13:02
DX: R53.1 Weakness (principal); R26.2 Difficulty in walking, not elsewhere classified; R41.82 Altered mental status, unspecified; I10 Essential (primary) hypertension; E78.00 Pure hypercholesterolemia, unspecified; Z79.899 Other long term (current) drug therapy
CPT/HCPCS: 36415; 80053; 81001; 83690; 84443; 85025; 87086; 96360; 99284; 99285; A9270; 81003; 87077; 87181

== ENCOUNTER 2024-03-29 08:00 | Outpatient (CLI) | payer MEDICARE, BC ==
[2024-03-29 17:45] LABS: BASOPHILS % (AUTO) 0.3 %; EOSINOPHILS # (AUTO) 0.1 10^3/uL (0.0-0.7); EOSINOPHILS % (AUTO) 0.4 %; HCT - HEMATOCRIT 31.2 % (37.0-47.0); HGB - HEMOGLOBIN 9.5 g/dL (12.0-16.0); LYMPHOCYTES # (AUTO) 1.2 10^3/uL (1.5-3.5); LYMPHOCYTES % (AUTO) 10.2 %; MEAN CORPUSCULAR HEMOGLOBIN 30.2 pg (27.0-31.0); MEAN CORPUSCULAR HGB CONC 30.4 g/dL (32.0-36.0); MEAN PLATELET VOLUME 10.1 fL (7.9-10.8); MONOCYTES # (AUTO) 0.8 10^3/uL (0.0-1.0); MONOCYTES % (AUTO) 6.5 %; NEUTROPHILS # (AUTO) 9.7 10^3/uL (1.5-6.6); NEUTROPHILS % (AUTO) 82.2 %; PLT - PLATELET COUNT 346 10^3/uL (130-450); RED BLOOD COUNT 3.15 10^6/uL (4.20-5.40); RED CELL DISTRIBUTION WIDTH 13.9 % (12.0-15.0); WHITE BLOOD COUNT 11.8 x10^3/uL (4.8-10.8)
[2024-03-29 18:04] LABS: ALBUMIN/GLOBULIN RATIO 1.3 (1.0-2.2); BILIRUBIN,TOTAL 0.5 mg/dL (0.2-1.0); CALCIUM 9.7 mg/dL (8.5-10.3); CREATININE 1.3 mg/dL (0.6-1.3); POTASSIUM 3.8 mmol/L (3.5-4.5)
== END 2024-03-29 23:59 | disposition home or self-care (01) ==
LOC: LAB.R 08:00
DX: R79.9 Abnormal finding of blood chemistry, unspecified (principal); Z13.228 Encounter for screening for other metabolic disorders; Z51.81 Encounter for therapeutic drug level monitoring
CPT/HCPCS: 80053; 80175; 85025

== ENCOUNTER 2024-04-05 10:34 | Outpatient (CLI) | payer MEDICARE, BC ==
[2024-04-05 10:38] LABS: BASOPHILS % (AUTO) 0.2 %; EOSINOPHILS # (AUTO) 0.2 10^3/uL (0.0-0.7); EOSINOPHILS % (AUTO) 2.3 %; HCT - HEMATOCRIT 34.2 % (37.0-47.0); HGB - HEMOGLOBIN 10.3 g/dL (12.0-16.0); LYMPHOCYTES # (AUTO) 1.4 10^3/uL (1.5-3.5); LYMPHOCYTES % (AUTO) 15.4 %; MEAN CORPUSCULAR HEMOGLOBIN 29.8 pg (27.0-31.0); MEAN CORPUSCULAR HGB CONC 30.1 g/dL (32.0-36.0); MEAN CORPUSCULAR VOLUME 98.8 fL (81.0-99.0); MEAN PLATELET VOLUME 9.8 fL (7.9-10.8); MONOCYTES # (AUTO) 0.7 10^3/uL (0.0-1.0); MONOCYTES % (AUTO) 7.6 %; NEUTROPHILS # (AUTO) 6.6 10^3/uL (1.5-6.6); NEUTROPHILS % (AUTO) 74.2 %; PLT - PLATELET COUNT 446 10^3/uL (130-450); RED BLOOD COUNT 3.46 10^6/uL (4.20-5.40); RED CELL DISTRIBUTION WIDTH 13.9 % (12.0-15.0); WHITE BLOOD COUNT 8.9 x10^3/uL (4.8-10.8)
== END 2024-04-05 10:35 | disposition home or self-care (01) ==
LOC: LAB.R 10:34
PROVIDERS: ATTEND Family Medicine
DX: N39.0 Urinary tract infection, site not specified (principal)
CPT/HCPCS: 80053; 85025

== ENCOUNTER 2024-04-17 08:02 | Outpatient (CLI) | payer MEDICARE, BC ==
[2024-04-17 08:09] LABS: BASOPHILS % (AUTO) 0.2 %; EOSINOPHILS # (AUTO) 0.2 10^3/uL (0.0-0.7); EOSINOPHILS % (AUTO) 3.6 %; HCT - HEMATOCRIT 29.7 % (37.0-47.0); HGB - HEMOGLOBIN 9.1 g/dL (12.0-16.0); LYMPHOCYTES # (AUTO) 1.8 10^3/uL (1.5-3.5); LYMPHOCYTES % (AUTO) 34.5 %; MEAN CORPUSCULAR HEMOGLOBIN 29.6 pg (27.0-31.0); MEAN CORPUSCULAR HGB CONC 30.6 g/dL (32.0-36.0); MEAN CORPUSCULAR VOLUME 96.7 fL (81.0-99.0); MEAN PLATELET VOLUME 10.8 fL (7.9-10.8); MONOCYTES # (AUTO) 0.5 10^3/uL (0.0-1.0); MONOCYTES % (AUTO) 8.9 %; NEUTROPHILS # (AUTO) 2.7 10^3/uL (1.5-6.6); NEUTROPHILS % (AUTO) 52.6 %; PLT - PLATELET COUNT 353 10^3/uL (130-450); RED BLOOD COUNT 3.07 10^6/uL (4.20-5.40); RED CELL DISTRIBUTION WIDTH 13.3 % (12.0-15.0); WHITE BLOOD COUNT 5.1 x10^3/uL (4.8-10.8)
== END 2024-04-17 08:03 | disposition home or self-care (01) ==
LOC: LAB.R 08:02
PROVIDERS: ATTEND Family Medicine
DX: G40.909 Epilepsy, unspecified, not intractable, without status epilepticus (principal)
CPT/HCPCS: 80053; 85025

== ENCOUNTER 2024-06-25 08:00 | Outpatient (CLI) | payer MEDICARE, BC ==
[2024-06-25 20:22] LABS: BILIRUBIN,URINE NEGATIVE (NEGATIVE); GLUCOSE, URINE (UA) NEGATIVE (NEGATIVE); KETONES,URINE (UA) NEGATIVE (NEGATIVE); LEUKOCYTE ESTERASE, URINE TRACE (NEGATIVE); NITRITE,URINE NEGATIVE (NEGATIVE); OCCULT BLOOD,URINE NEGATIVE (NEGATIVE); PH,URINE 6.5 PH (5.0-7.5); PROTEIN,URINE NEGATIVE (NEGATIVE); UROBILINOGEN,URINE 0.2 (NORMAL) E.U./dL (NORMAL)
[2024-06-25 20:41] LABS: BACTERIA,URINE Rare /HPF (None Seen); CLARITY,URINE CLEAR (CLEAR); RBC,URINE 0-5 /HPF (0-5); SQUAMOUS EPITHELIAL CELL,UR RARE Squamous (<= Few)
== END 2024-06-25 23:59 | disposition home or self-care (01) ==
LOC: LAB.F 08:00
PROVIDERS: ATTEND Nurse Practitioner Gerontology
DX: N39.0 Urinary tract infection, site not specified (principal)
CPT/HCPCS: 81001; 87086